=== PATIENT | male | born 1995 | race Two or more races ===

== ENCOUNTER 2024-10-10 23:55 | Inpatient (IN) | payer MEDICAID, OTHER ==
[~2024-10-10] VITALS: Ht 182.9 cm; Wt 101.2 kg
[2024-10-11] MEDS: SODIUM CHLORIDE 0.9% 1,000 ML IV ONE ×2 (00:53→03:22)
[2024-10-11] MEDS: LORazepam 2MG/ML-1ML VIAL IV ONE ×2 (00:53→01:09)
--- NOTE | 2024-10-11 00:54 | ED.PDOC ---
HPI (NEURO) HPI Comments Vitals: Temperature 98.9F Pulse 83 Respiratory rate 13 Blood pressure 123/88 SpO2 97%RA Past medical history: alcohol-withdrawal induced seizures Past surgical history: denies HPI: Poor Historian. 29-year-old male brought in by ambulance from a rehab facility for evaluation of witnessed alcohol withdrawal seizure. Vital signs pre-hospital course and blood sugar were unremarkable. Patient was given no medications in route. Patient arrived postictal and had a witnessed seizure here in the ED. Patient was evaluated immediately. REVIEW OF SYSTEMS: Limited given the patient altered level of consciousness/postictal state CONSTITUTIONAL: Denies acute: fever, diaphoresis, chills, generalized weakness. HEAD: Denies acute: headache, photophobia Eyes: Denies acute: Double vision, vision loss, eye pain, eye discharge. EARS: Denies acute: tinnitus, hearing loss, ear discharge, ear pain, THROAT: Denies acute: sore throat, swelling, difficulty swallowing , pain with swallowing, change in voice. NECK: Denies acute: neck pain, neck swelling, stiff neck. HEART: Denies acute : chest pain, palpitations, LUNGS: Denies acute: SOB, wheezing, cough, hemoptysis ABDOMEN: Denies acute: abdominal pain, Nausea, Vomiting, diarrhea, melena , hematemesis, hematochezia SKIN: Denies acute: rash, redness, lesions, itchiness. EXTREMITIES: Denies acute: calf pain, numbness, tingling, weakness, denies pain in extremity. Denies acute: Low back pain. Neuro: Denies acute: focal neurological deficit, motor or sensory focal neurological deficit, dizziness, loss of bowel or bladder function, cauda equina like symptoms. : Denies acute: dysuria, hematuria, flank pain, increase in urinary frequency. PSYCH: Denies acute: hallucination, suicidal ideation, homicidal ideation. PHYSICAL EXAM: General: -----[id number]---acute distress, awake and alert. Head: normocephalic, atraumatic. Neck: supple, trachea is midline, no swelling. Throat: Normal phonation. Eyes:, no erythema, no purulent discharge, no proptosis, no icterus. Heart: regular rate, regular rhythm, no significant murmur appreciated. Lungs: no apparent respiratory distress, Able to speak in full sentences. No wheezing, no rhonchi, no crackles. No stridors Clear to auscultation bilaterally. Abdomen: non tender to palpation, non distended, soft, no guarding, no rebound, + bowel sounds. Neuro: Patient was initially postictal from the field. Patient had witnessed seizure here in the ED. Seizure was controlled with the Ativan and Versed. Patient was placed on a non-rebreather mask immediately and given fluid hydration as well. Patient started waking up and moving all four extremities and having purposeful movement and holding his mask on his face and making eye contact. Skin: no petechia, no purpura, no cyanosis, non-pale, not jaundice. Lower extremities: --no - Pitting edema no deformity, no focal swelling, no calf TTP. Makes eye contact. moves all four extremities. Face: no apparent facial droop. No nuchal rigidity, Kernig's sign, Brudzinski's sign, no meningeal signs. ED COURSE: DISCLAIMER: This medical document was created using an electronic medical record system with voice recognition software and computerized dictation system. Although this document has been carefully reviewed, there might still be some phonetic and typographical errors. Occasional wrong-word or "sound-alike" substitutions may have occurred due to the inherent limitations of voice recognition software. These areas are purely typographical due to imperfections of the software programs and do not reflect any compromise in the patient's medical care. Please read the chart carefully and recognize, using context, where these substitutions have occurred. Chief Complaint: Seizure Time Seen by MD: 00:50 Reviewed Notes: Allergies Information Source: Emergency Med Personnel Mode of Arrival: EMS Was a procedure done? Was a procedure done?: No Differential Diagnosis (SZ) Seizure: Other (SEIZUREDDX include not limited to CVA, cerebellar ischemia/infarct, carotid stenosis, vertebral/carotid artery dissection,, vertebrobasillary insufficiency, Intracranial mass/infection/bleed, encephalopathy, elctrolyte abnormality, thyroid disease, multiple sclerosis, hypoglycemia, drug toxicity, cardiac arrhythmia, sub-theraputic anti-convulsion medications, known seizure disorder, pseudo-seizure.) X-Ray, Labs, Meds, VS Vital Signs Date Time Temp Pulse Resp B/P (MAP) Pulse Ox O2 Delivery O2 Flow Rate FiO2 10/11/24 03:00 87 18 104/62 (76) 100 10/11/24 01:30 98.2 88 16 123/77 (92) 100 98.2 10/11/24 01:30 88 16 99 Non-Rebreather 15 N/A 10/11/24 01:00 97 24 121/78 (92) 98 10/11/24 00:55 95 10 124/71 (88) 98 10/11/24 00:52 98 10/11/24 00:33 81 10/11/24 00:20 98.9 83 13 123/88 97 98.9 Lab Test 10/11/24 02:11 10/11/24 01:13 10/11/24 01:00 Range/Units Troponin I High Sensitivity < 3 L < 3 L </=54 ng/L White Blood Count 5.2 4.4-10.8 10^3/uL Red Blood Count 4.36 L 4.5-5.90 10^6/uL Hemoglobin 14.4 13.5-17.5 g/dL Hematocrit 41.3 41.0-53.0 % Mean Corpuscular Volume 94.8 80.0-100.0 fL Mean Corpuscular Hemoglobin 33.1 H 28.0-32.0 pg Mean Corpuscular Hemoglobin Concent 34.9 32.0-36.0 g/dL Red Cell Distribution Width 13.2 11.8-14.3 % Platelet Count 279 140-450 10^3/uL Mean Platelet Volume 8.9 6.9-10.8 fL Neutrophils (%) (Auto) 42.4 37.0-80.0 % Lymphocytes (%) (Auto) 42.9 10.0-50.0 % Monocytes (%) (Auto) 9.6 0.0-12.0 % Eosinophils (%) (Auto) 3.3 0.0-7.0 % Basophils (%) (Auto) 1.8 0.0-2.0 % Neutrophils # (Auto) 2.2 1.6-8.6 10 ^3/uL Lymphocytes # (Auto) 2.2 0.4-5.4 10 ^3/uL Monocytes # (Auto) 0.5 0-1.3 10 ^3/uL Eosinophils # (Auto) 0.2 0-0.8 10 ^3/uL Basophils # (Auto) 0.1 0-0.2 10 ^3/uL Nucleated Red Blood Cells 0.0 % Sodium Level 146 H 136-145 mmol/L Potassium Level 3.8 3.5-5.1 mmol/L Chloride Level 109 H 98-107 mmol/L Carbon Dioxide Level 25 20-31 mmol/L Anion Gap 12 5-15 Blood Urea Nitrogen < 5 L 9-23 mg/dL Creatinine 0.85 0.700-1.30 mg/dL Glomerular Filtration Rate Calc 121 >90 mL/min BUN/Creatinine Ratio 5.9 L 10.0-20.0 Serum Glucose 97 74-106 mg/dL Lactic Acid Level 2.3 *H 0.4-2.0 mmol/L Calcium Level 8.2 L 8.7-10.4 mg/dL Magnesium Level 2.0 1.6-2.6 mg/dL Total Bilirubin 0.3 0.2-1.0 mg/dL Aspartate Amino Transferase (AST) 54 H 13-40 U/L Alanine Aminotransferase (ALT) 37 7-40 U/L Alkaline Phosphatase 66 46-116 U/L Creatine Kinase 504 H 46-171 U/L Total Protein 6.8 5.7-8.2 g/dL Albumin 4.2 3.2-4.8 g/dL Plasma/Serum Blood Alcohol 322.7 H <10 mg/dL Urine Color Colorless Yellow Urine Clarity Clear Clear Urine pH 5.5 5.0-9.0 Urine Specific [place] 1.004 1.001-1.035 Urine Protein Negative Negative Urine Ketones Negative Negative Urine Blood Negative Negative /uL Urine Nitrite Negative Negative Urine Bilirubin Negative Negative Urine Urobilinogen Normal Negative mg/dL Urine Leukocyte Esterase Negative Negative /uL Urine RBC None seen 0 - 3 /hpf Urine Microscopic WBC < 1 0-3 /HPF Urine Squamous Epithelial Cells None seen <5 /hpf Urine Bacteria None seen None Seen /hpf Urine Glucose Normal Normal mg/dL Urine Opiates Screen Neg NEGATIVE Urine Fentanyl Screen Neg NEGATIVE Urine Barbiturates Screen Neg NEGATIVE Urine Phencyclidine Screen Neg NEGATIVE Urine Amphetamines Screen Neg NEGATIVE Urine Benzodiazepines Screen Neg NEGATIVE Urine Cocaine Screen Neg NEGATIVE Urine Cannabinoids Screen Neg NEGATIVE [facility] [address] [facility] [address] Ph: [phone] DIAGNOSTIC IMAGING Diagnostic Imaging Report : [id number] Signed PATIENT: BRIAN COLEMAN ACCT: [id number] UNIT: [id number] : 1995 LOC: ER ROOM / BED: / AGE / SEX: 29 / M ADM STATUS: REG ER SERVICE [id number] ORDERING PHYSICIAN: KOBE ISAAC DO PROCEDURE(s): HWOCT - HEAD WITHOUT CONTRAST REASON: Alcohol withdrawal seizure ORDER NUMBER(s): [id number], ACCESSION NUMBER(s): [id number] EXAM: CT HEAD WITHOUT CONTRAST INDICATION: Alcohol withdrawal seizure TECHNIQUE: CT of the head without intravenous contrast. Radiation Dose : 1. Head: CT Dose: CTDI volume is 62.13 mGy. Dose-length product is 1.71 mGy*cm The dose indicators for CT are the volume Computed Tomography (CT) Dose Index (CTDIvol) and the Dose Length Product (DLP), and are measured in units of mGy and mGy-cm, respectively. These indicators are not patient dose, but values generated from the CT scanner acquisition factors. The report includes radiation exposure data for exposures received during this examination. COMPARISON: None FINDINGS: Brain: No acute hemorrhage, mass effect, or cerebral edema. CSF Spaces: Size and morphology within normal limits. Bones/Soft Tissues: No acute findings. Orbits/Sinuses/Mastoids: No acute findings. Partially imaged left maxillary sinus retention cysts. IMPRESSION: 1. No acute intracranial abnormality. Radiation optimization: All CT scans at this facility use at least one of these dose optimization techniques: automated exposure control mA and/or kV adjustment per patient size (includes targeted exams where dose is matched to clinical indication) or iterative reconstruction. ATED BY: RASHI CARRANZA MD DICTATED DATE/TIME: 10/11/24208 SIGNED BY: RASHI CARRANZA MD SIGNED DATE/TIME: 10/11/24208 CC: [address] [address] Ph: [phone] DIAGNOSTIC IMAGING Diagnostic Imaging Report : [id number] Signed PATIENT: BRIAN COLEMAN ACCT: [id number] UNIT: [id number] : 1995 LOC: ER ROOM / BED: / AGE / SEX: 29 / M ADM STATUS: REG ER SERVICE ORDERING PHYSICIAN: KOBE ISAAC DO PROCEDURE(s): CXRP - CHEST PORTABLE REASON: Seizure ORDER NUMBER(s): [id number], ACCESSION NUMBER(s): [id number] CHEST RADIOGRAPH Indication: Seizure Technique: 1 view Comparison: None FINDINGS: Lines and Tubes: None Lungs/Pleura: No focal consolidation. Low lung volumes with vascular crowding and bibasilar airspace opacities likely representing atelectasis. No evident pleural abnormality; costophrenic angle is excluded. Cardiomediastinum: Unremarkable. Other: No acute osseous abnormality. IMPRESSION: 1. Low lung volumes with bibasilar opacities likely representing atelectasis. ATED BY: RASHI CARRANZA MD DICTATED DATE/TIME: 10/11/24132 SIGNED BY: RASHI CARRANZA MD SIGNED DATE/TIME: 10/11/24132 CC: Time of 1ST Reevaluation: 01:20 Reevaluation 1ST: Unchanged Patient Education/Counseling: Other (patient is postictal ) Family Education/Counseling: No Family Present Comments MDM: patient presented with the above HPI.-alcohol withdrawal seizure-----workup was initiated. patient was found with the above mentioned diagnosis. the following medications were ordered: please refer to order lists of meds and tests obtained by myself Dr. Isaac. Patient ED course and VS have been stabilized. Patient has been reassessed in the ED and remained in a stable condition. Pertinent incidental findings were discussed with the patient and/or family. Patient has been observed in the ED adequate length of time to insure improvement/stability. Escalation of care considered: Consideration of escalation to observation or admission Patient was given Versed, Ativan, fluids. Patient was ADMITTED to the medicine team for further evaluation and treatment of their presentation. All the reports of any imaging studies that were ordered by myself were reviewed by myself. Departure 1 Departure Time of Disposition: 01:33 Impression: Primary Impression: Alcohol withdrawal seizure Disposition: ADMITTED INPATIENT Admit to: Tele Condition: Guarded e-Prescriptions Pantoprazole Sodium Sesquihydr (Pantoprazole Sodium) 40 Mg Tab 40 MG PO DAILY for 30 Days, #30 TAB Prov: RAD HOLLIS RESIDENT 10/13/24 Thiamine HCl (Thiamine Hydrochloride) 100 Mg Tab 100 MG PO DAILY for 90 Days, #90 TAB Prov: RAD HOLLIS RESIDENT 10/13/24 Folic Acid (Folic Acid) 1 Mg Tab 1 MG PO DAILY for 90 Days, #90 TAB Prov: RAD HOLLIS RESIDENT 10/13/24 Discharged With: Self Critical Care Note Critical Care Time?: Yes (55 min-critical care time only) I personally scribed for KOBE ISAAC DO ([email or web address]) on 10/11/24 at 00:54. Electronically submitted by Sergio Brown [email or web address]). KOBE ISAAC DO Oct 11, 2024 00:54
[2024-10-11] MEDS: MIDAZOLAM HCL 2MG/2ML 2ml VIAL (1mg/ml) ONE (00:56)
[2024-10-11] MEDS: LORazepam 2MG/ML-1ML VIAL ONE (00:57)
[2024-10-11] MEDS: MIDAZOLAM HCL 2MG/2ML 2ml VIAL (1mg/ml) IV ONE (01:02)
[2024-10-11 01:30] VITALS: PULSE 88; RESP 16; O2SAT 99
--- NOTE | 2024-10-11 01:36 | DVH ---
CHEST RADIOGRAPH Indication: Seizure Technique: 1 view Comparison: None FINDINGS: Lines and Tubes: None Lungs/Pleura: No focal consolidation. Low lung volumes with vascular crowding and bibasilar airspace opacities likely representing atelectasis. No evident pleural abnormality; costophrenic angle is ex cluded. Cardiomediastinum: Unremarkable. Other: No acute osseous abnormality. IMPRESSION: 1. Low lung volumes with bibasilar opacities likely representing atelectasis.
[2024-10-11 01:43] LABS: Hematocrit 41.3 % (41.0-53.0); Hemoglobin 14.4 g/dL (13.5-17.5); Mean Corpuscular Hemoglobin 33.1 pg (28.0-32.0); Mean Corpuscular Volume 94.8 fL (80.0-100.0); Nucleated Red Blood Cells % 0.0 %
[2024-10-11 02:00] LABS: Alanine Aminotransferase 37 U/L (7-40); Albumin 4.2 g/dL (3.2-4.8); Alkaline Phosphatase 66 U/L (46-116); Anion Gap 12 (5-15); Carbon Dioxide 25 mmol/L (20-31); Chloride 109 mmol/L (98-107); Glucose 97 mg/dL (74-106); Magnesium 2.0 mg/dL (1.6-2.6); Potassium 3.8 mmol/L (3.5-5.1); Sodium 146 mmol/L (136-145); Total Protein 6.8 g/dL (5.7-8.2)
[2024-10-11 02:01] LABS: BUN/Creatinine Ratio 5.9 (10.0-20.0); Blood Urea Nitrogen < 5 mg/dL (9-23); Calcium 8.2 mg/dL (8.7-10.4)
[2024-10-11 02:08] LABS: Bilirubin, Total 0.3 mg/dL (0.2-1.0)
--- NOTE | 2024-10-11 02:12 | DVH ---
EXAM: CT HEAD WITHOUT CONTRAST INDICATION: Alcohol withdrawal seizure TECHNIQUE: CT of the head without intravenous contrast. Radiation Dose : 1. Head: CT Dose: CTDI volume is 62.13 mGy. Dose-length product is 1.71 mGy*cm The dose indicators for CT are the volume Computed Tomography (CT) Dose Index (CTDIvol) and the Dose Length Product (DLP), and are measured in units of mGy and mGy-cm, respectively. These indicators are not patient dose, but values generated from the CT scanner acquisition factors. The report includes radiation exposure data for exposures received during this examination. COMPARISON: None FINDINGS: Brain: No acute hemorrhage, mass effect, or cerebral edema. CSF Spaces: Size and morphology within normal limits. Bones/Soft Tissues: No acute findings. Orbits/Sinuses/Mastoids: No acute findings. Partially imaged left maxillary sinus retention cysts. IMPRESSION: 1. No acute intracranial abnormality. Radiation optimization: All CT scans at this facility use at least one of these dose optimization jluis hniques: automated exposure control mA and/or kV adjustment per patient size (includes targeted exam s where dose is matched to clinical indication) or iterative reconstruction.
[2024-10-11 02:13] LABS: Lactic Acid w/Reflex 2.3 mmol/L (0.4-2.0)
--- NOTE | 2024-10-11 03:08 | DVHHP2 ---
History of Present Illness Reason for Visit: Alcohol withdrawal seizure History of Present Illness The patient is a 29-year-old male with past medical history of alcohol withdrawal induced seizure who presented to [facility] ED for evaluation of witnessed alcohol withdrawal seizure. As reported patient had a witnessed alcohol withdrawal seizure, arrived postictal and had a witnessed seizure here in the ED. Patient was noted to have bruises on his forehead and left knee. Patient was seen and evaluated in the ED, laboratory data shows WBC 5.2, platelets 279, sodium 146, potassium 3.8, BUN 5, creatinine 0.85, glucose 97, lactic acid 2.3, CK 504, troponin < 3, calcium 8.2, AST 54, ALT 37, blood pressure 122/77, heart rate 88, temperature 98.2 F, O2 saturation 98% on oxygen. Head CT showed no acute intracranial abnormality. Please see medication orders section in the computer. On my assessment, patient denied chest pain, no headache, no dizziness, no diaphoresis, no seizures activities at this moment, currently on oxygen, no nausea, no vomiting, no fever, no chills. Patient was admitted for further evaluation and medical management. Past Medical History Alcohol-withdrawal induced seizures Past Surgical History Denies all surgeries Family History Reviewed, noncontributory to the management of this case. Past Social History The patient lives at home, denies smoking, alcohol or illicit drugs abuse. Review of Systems Constitutional: Yes: Weakness; No: Fever, Chills, Sweats, Malaise, Other Eyes: No: Pain, Vision change, Conjunctivae inflammation, Eyelid inflammation, Other, Redness ENT: No: Ear pain, Ear discharge, Nose pain, Nose discharge, Nose congestion, Mouth pain, Mouth swelling, Throat pain, Throat swelling, Other Respiratory: No: Cough, Dry, Shortness of breath, SOB with excertion, Wheezing, Hemoptysis, Pleuritic Pain, Sputum, Wheezing, Other Cardiovascular: No: Chest Pain, Palpitations, Orthopnea, Paroxysmal Noc. Dyspnea, Edema, Lt Headedness, Other Gastrointestinal: No: Nausea, Vomiting, Abdominal Pain, Diarrhea, Constipation, Melena, Hematochezia, Other Genitourinary: No Dysuria, No Frequency, No Incontinence, No Hematuria, No Retention, No Other Musculoskeletal: No: other, neck pain, shoulder pain, arm pain, back pain, hand pain, leg pain, foot pain Skin: Other (Skin tear right forehead and left knee.); No: Rash, Lesions, Jaundice, Bruising Neurological: Seizures; No: Weakness, Numbness, Incoordination, Change in speech, Confusion, Other Allergies: Coded Allergies: NO KNOWN ALLERGIES (Unverified , 10/11/24) Exam Vital Signs Vital Signs Date Time Temp Pulse Resp B/P (MAP) Pulse Ox O2 Delivery O2 Flow Rate FiO2 10/11/24 01:30 98.2 88 16 123/77 (92) 100 98.2 10/11/24 01:30 Non-Rebreather 15 N/A General Appearance: Alert, Cooperative, No acute distress, Other (Oriented x2) HEENT: Atraumatic, PERRLA, EOMI, Mucous membr. moist/pink Respiratory: Clear to auscultation, Normal air movement Cardiovascular: Regular rate, Normal S1, Normal S2, No murmurs Abdominal: Normal bowel sounds, Soft, No tenderness, No hepatospenomegaly, No masses Extremities: No clubbing, No cyanosis, No edema, Normal pulses, No tenderness/swelling Skin: No rashes, No significant lesion Neuro: Normal speech, Normal tone, Sensation intact, Cranial nerves 3-12 NL, Reflexes 2+, Other (Generalized weakness) Psych/Mental Status: Mental status NL, Mood NL Labs/Xrays Labs Test 10/11/24 02:11 10/11/24 01:13 10/11/24 01:00 Range/Units Troponin I High Sensitivity < 3 L </=54 ng/L White Blood Count 5.2 4.4-10.8 10^3/uL Red Blood Count 4.36 L 4.5-5.90 10^6/uL Hemoglobin 14.4 13.5-17.5 g/dL Hematocrit 41.3 41.0-53.0 % Mean Corpuscular Volume 94.8 80.0-100.0 fL Mean Corpuscular Hemoglobin 33.1 H 28.0-32.0 pg Mean Corpuscular Hemoglobin Concent 34.9 32.0-36.0 g/dL Red Cell Distribution Width 13.2 11.8-14.3 % Platelet Count 279 140-450 10^3/uL Mean Platelet Volume 8.9 6.9-10.8 fL Neutrophils (%) (Auto) 42.4 37.0-80.0 % Lymphocytes (%) (Auto) 42.9 10.0-50.0 % Monocytes (%) (Auto) 9.6 0.0-12.0 % Eosinophils (%) (Auto) 3.3 0.0-7.0 % Basophils (%) (Auto) 1.8 0.0-2.0 % Neutrophils # (Auto) 2.2 1.6-8.6 10 ^3/uL Lymphocytes # (Auto) 2.2 0.4-5.4 10 ^3/uL Monocytes # (Auto) 0.5 0-1.3 10 ^3/uL Eosinophils # (Auto) 0.2 0-0.8 10 ^3/uL Basophils # (Auto) 0.1 0-0.2 10 ^3/uL Nucleated Red Blood Cells 0.0 % Sodium Level 146 H 136-145 mmol/L Potassium Level 3.8 3.5-5.1 mmol/L Chloride Level 109 H 98-107 mmol/L Carbon Dioxide Level 25 20-31 mmol/L Anion Gap 12 5-15 Blood Urea Nitrogen < 5 L 9-23 mg/dL Creatinine 0.85 0.700-1.30 mg/dL Glomerular Filtration Rate Calc 121 >90 mL/min BUN/Creatinine Ratio 5.9 L 10.0-20.0 Serum Glucose 97 74-106 mg/dL Lactic Acid Level 2.3 *H 0.4-2.0 mmol/L Calcium Level 8.2 L 8.7-10.4 mg/dL Magnesium Level 2.0 1.6-2.6 mg/dL Total Bilirubin 0.3 0.2-1.0 mg/dL Aspartate Amino Transferase (AST) 54 H 13-40 U/L Alanine Aminotransferase (ALT) 37 7-40 U/L Alkaline Phosphatase 66 46-116 U/L Creatine Kinase 504 H 46-171 U/L Total Protein 6.8 5.7-8.2 g/dL Albumin 4.2 3.2-4.8 g/dL PATIENT: BRIAN COLEMAN ACCT: [id number] UNIT: [id number] : 1995 LOC: ER ROOM / BED: / AGE / SEX: 29 / M ADM STATUS: REG ER SERVICE 0143 ORDERING PHYSICIAN: KOBE ISAAC DO PROCEDURE(s): HWOCT - HEAD WITHOUT CONTRAST REASON: Alcohol withdrawal seizure ORDER NUMBER(s): [id number], ACCESSION NUMBER(s): [id number] EXAM: CT HEAD WITHOUT CONTRAST INDICATION: Alcohol withdrawal seizure TECHNIQUE: CT of the head without intravenous contrast. Radiation Dose: 1. Head: CT Dose: CTDI volume is 62.13 mGy. Dose-length product is 1.71 mGy*cm The dose indicators for CT are the volume Computed Tomography (CT) Dose Index (CTDIvol) and the Dose Length Product (DLP), and are measured in units of mGy an d mGy-cm, respectively. These indicators are not patient dose, but values generated from the CT scanner acquisition factors. The report includes radiation exposure data for exposures received during this examination. COMPARISON: None FINDINGS: Brain: No acute hemorrhage, mass effect, or cerebral edema. CSF Spaces: Size and morphology within normal limits. Bones/Soft Tissues: No acute findings. Orbits/Sinuses/Mastoids: No acute findings. Partially imaged left maxillary sinus retention cysts. IMPRESSION: 1. No acute intracranial abnormality. ORDERING PHYSICIAN: KOBE ISAAC DO PROCEDURE(s): CXRP - CHEST PORTABLE REASON: Seizure ORDER NUMBER(s): [id number], ACCESSION NUMBER(s): [id number] CHEST RADIOGRAPH Indication: Seizure Technique: 1 view Comparison: None FINDINGS: Lines and Tubes: None Lungs/Pleura: No focal consolidation. Low lung volumes with vascular crowding and bibasilar airspace opacities likely representing atelectasis. No evident pleural abnormality; costophrenic angle is excluded. Cardiomediastinum: Unremarkable. Other: No acute osseous abnormality. IMPRESSION: 1. Low lung volumes with bibasilar opacities likely representing atelectasis. SEPSIS Sepsis Screen Date sepsis recognized/suspect: Oct 11, 2024 Time Sepsis recognized/suspect: 0130 Recent Procedure: No On Antibiotic Therapy: No Respiratory Rate >20: No Heart Rate >90: No Temp<36 C (96.8 F) or >38.3 C: No SBP <90 or MAP <65 mmHG: No New Acute Mental Status Change: No Is the patient on CPAP, BIPAP,: No Physician Orders [employer] (10/11/24 ) Blood Alcohol (10/11/24 00:40) Comprehensive Metabolic Panel (10/11/24 00:40) Magnesium (10/11/24 00:40) Urinalysis (10/11/24 00:40) Chest Portable (10/11/24 00:40) Electrocardigram (10/11/24 00:40) Troponin-I Hs (10/11/24 03:40) Head Without Contrast (10/11/24 01:43) Sodium Chloride 0.9% (10/11/24 03:00) Complete Blood Count (10/11/24 04:00) Comprehensive Metabolic Panel (10/11/24 04:00) Lorazepam 2mg/Ml Inj (Ativan Inj) (10/11/24 03:15) Folic Acid Tablet (10/11/24 10:00) Thiamine Tab (10/11/24 10:00) Trazodone Hcl (Desyrel) (10/11/24 22:00) Gabapentin Capsule (Neurontin Capsule) (10/11/24 06:00) Admit (10/11/24 03:03) Allergies (10/11/24 03:03) Code Status (10/11/24 03:03) Sodium Chloride Lock (Saline Lock Ns) (10/11/24 06:00) Vital Signs Date Time Temp Pulse Resp B/P (MAP) Pulse Ox O2 Delivery O2 Flow Rate FiO2 10/11/24 01:30 98.2 88 16 123/77 (92) 100 98.2 10/11/24 01:30 88 16 99 Non-Rebreather 15 N/A 10/11/24 01:00 97 24 121/78 (92) 98 10/11/24 00:55 95 10 124/71 (88) 98 10/11/24 00:33 81 10/11/24 00:20 98.9 83 13 123/88 97 98.9 Laboratory Tests Test 10/11/24 01:13 Lactic Acid Level 2.3 mmol/L (0.4-2.0) *H White Blood Count 5.2 10^3/uL (4.4-10.8) Medications Medications Dose Ordered Sig/Tank Route Start Time Stop Time Status Last Admin Dose Admin Chlordiazepoxide HCl 25 mg ONCE ONCE PO 10/11/24 00:45 10/11/24 00:46 DC 10/11/24 02:35 25 MG Lorazepam 1 mg ONCE ONCE IV 10/11/24 00:45 10/11/24 00:46 DC 10/11/24 00:53 1 MG Lorazepam 2 mg ONCE ONCE IV 10/11/24 01:08 10/11/24 01:27 DC 10/11/24 01:09 2 MG Midazolam HCl 2 mg ONCE ONCE IV 10/11/24 01:01 10/11/24 01:27 DC 10/11/24 01:02 2 MG Sodium Chloride 1,000 ml @ 1,000 mls/hr Q1H ONCE IV 10/11/24 00:45 10/11/24 01:44 DC 10/11/24 00:53 1,000 MLS/HR Assessment/Plan Assessment/Plan Alcohol withdrawal seizure Rhabdomyolysis Generalized weakness Plan 1. Admit to telemetry unit 2. Breathing treatment 3. Pain control management 4. Management of fluids and electrolytes 5. Consultation for Neurology 6. Diagnostic tests head CT 7. DVT prophylaxis-on SCDs 8. Repeat labs CBC, CMP in a.m. 9. Continue with current medical management 10. Treatment plan discussed with patient and RN. Patient verbalized understanding. Plan discussed with: Patient, Other (RN) My Orders Orders - VANNESA JUARES DNP Procedure Category Date Status Time Complete Blood Count LAB 10/11/24 Verified 04:00 Comprehensive LAB 10/11/24 Verified Metabolic Panel 04:00 Lorazepam 2mg/Ml Inj PHA 10/11/24 Verified (Ativan Inj) 03:15 Folic Acid Tablet PHA 10/11/24 Verified 10:00 Thiamine Tab PHA 10/11/24 Verified 10:00 Trazodone Hcl PHA 10/11/24 Verified (Desyrel) 22:00 Gabapentin Capsule PHA 10/11/24 Verified (Neurontin Capsule) 06:00 Admit ADMIT 10/11/24 Verified 03:03 Allergies THOMAS 10/11/24 Verified 03:03 Code Status CODE 10/11/24 Verified 03:03 Sodium Chloride Lock PHA 10/11/24 Verified (Saline Lock Ns) 06:00 Problem List: (1) Alcohol withdrawal seizure (2) Rhabdomyolysis (3) Generalized weakness Date of Service: Oct 11, 2024 Billing Provider: VANNESA JUARES DNP Common Visit Codes: [id number] INP/OBS CARE (HIGH) VANNESA JUARES DNP Oct 11, 2024 03:08
[2024-10-11 03:15] LABS: Urine Protein, UAD Negative (Negative)
[2024-10-11] MEDS ORDERED: NITROGLYCERIN 0.4 MG SL TAB SL PRN (03:15)
[2024-10-11] MEDS ORDERED: HYDROcodone-ACET 5/325MG TAB PO PRN (03:15)
[2024-10-11] MEDS ORDERED: DOCUSATE SOD 100 MG CAP PO PRN (03:15)
[2024-10-11] MEDS ORDERED: MORPHINE SULFATE INJ 2 MG/ml SYRG IV PRN (03:15)
[2024-10-11] MEDS: CALCIUM GLUC 1,000mg/50ml-NS 50 ML IV ONE (04:21)
[2024-10-11] MEDS: LACTATED RINGER'S 1,000 ML IV SCH (04:24)
[2024-10-11 04:38] LABS: Hematocrit 39.6 % (41.0-53.0); Hemoglobin 13.7 g/dL (13.5-17.5); Mean Corpuscular Hemoglobin 32.7 pg (28.0-32.0); Mean Corpuscular Volume 94.5 fL (80.0-100.0); Nucleated Red Blood Cells % 0.0 %
[2024-10-11 04:57] LABS: Alanine Aminotransferase 36 U/L (7-40); Albumin 3.8 g/dL (3.2-4.8); Alkaline Phosphatase 63 U/L (46-116); Anion Gap 11 (5-15); Carbon Dioxide 26 mmol/L (20-31); Glucose 93 mg/dL (74-106); Potassium 4.0 mmol/L (3.5-5.1); Total Protein 6.5 g/dL (5.7-8.2)
[2024-10-11 04:58] LABS: Bilirubin, Total 0.3 mg/dL (0.2-1.0)
[2024-10-11 05:21] LABS: BUN/Creatinine Ratio 6.0 (10.0-20.0); Blood Urea Nitrogen < 5 mg/dL (9-23); Calcium 8.0 mg/dL (8.7-10.4); Chloride 109 mmol/L (98-107); Sodium 146 mmol/L (136-145)
--- NOTE | 2024-10-11 06:28 | ECG ---
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
[2024-10-11] MEDS: SODIUM CHLOR 0.9% PF (SALINE LOCK) 10ML VIAL/SYR IV SCH (06:29)
[2024-10-11] MEDS: GABAPENTIN 300 MG CAP PO SCH (06:33)
[2024-10-11 07:30] VITALS: PULSE 66; RESP 15; O2SAT 100
[2024-10-11] MEDS: THIAMINE HCL 100 MG TAB PO SCH (10:14)
[2024-10-11] MEDS: MULTIPLE VITAMIN TAB PO SCH (10:14)
[2024-10-11] MEDS: FOLIC ACID 1 MG TAB PO SCH (10:14)
[2024-10-11] MEDS: LORazepam 2MG/ML-1ML VIAL IV PRN (12:00)
--- NOTE | 2024-10-11 16:30 | DVHPNRES ---
Progress Note Date Seen: Oct 11, 2024 Resident Creating Document: RAD HOLLIS RESIDENT Medical Necessity Reason Pt with a Central, PICC or Fol: No Subjective Review of Systems Patient is 29 years old male with a past medical history of depression, insomnia, OCD, history of alcohol withdrawal was brought in by EMS due to witnessed alcohol withdrawal seizure. Patient also had a witnessed seizure at the ER after he came in. Patient reported he had same episode 3 days before. As per patient he had couple of alcohol withdrawal seizure over the last couple of years. Initial lab workup revealed hyponatremia sodium 146, lactic acidosis with lactic acid 2.3, creatinine kinase 504, AST 54, blood alcohol level 322. Urinalysis negative for UTI. CTA negative for acute intracranial abnormality. Chest x-ray-Low lung volumes with bibasilar opacities likely representing atelectasis. PMH- depression, insomnia, OCD, history of alcohol withdrawal PSH- history of esophageal myotomy 2017, Allergy- NKDA Personal History/ Social History- Patient was seen today at the bedside. Cardiovascular- deny acute chest pain or shortness of breath or cough or palpitation Respiratory denies cough or short of breath or wheezing Gastrointestinal- denies any rectal bleeding, nausea or vomiting Musculoskeletal-denies acute joint swelling or tenderness or redness Neurological- denies acute dysarthria, dysphagia, change in vision Psychiatry- denies depression or SI or HI Skin- denies acute rash or purpura 10/11/2024-patient was seen today at bedside. Patient reported feeling a little bit anxious, mild headache, mild hand tremor. CIWA score 9. Started Librium as per protocol. Patient was counseled about the effect of alcoholism on health. Objective vital signs Vital Sign Date Time Temp Pulse Resp B/P (MAP) Pulse Ox O2 Delivery O2 Flow Rate FiO2 10/11/24 15:00 69 15 126/62 (83) 96 10/11/24 07:30 Room Air* 2 N/A Nasal Cannula* 10/11/24 07:30 97.9 97.9 Total Intake and Output 10/10/24 10/10/24 10/11/24 15:00 23:00 07:00 Intake Total 1200 ml Balance 1200 ml medications Current Medications Medications Dose Ordered Sig/Tank Route Start Time Stop Time Status Last Admin Dose Admin Lorazepam 1 mg Q2HP PRN IV 10/11/24 03:15 10/11/24 14:28 1 MG Folic Acid 1 mg DAILY PO 10/11/24 10:00 Hold 10/11/24 10:14 1 MG Thiamine HCl 100 mg DAILY PO 10/11/24 10:00 Hold 10/11/24 10:14 100 MG Trazodone HCl 50 mg HS PO 10/11/24 22:00 Gabapentin 300 mg TID PO 10/11/24 06:00 10/11/24 14:27 300 MG Sodium Chloride 10 ml Q8HR IV 10/11/24 06:00 10/11/24 06:29 10 ML Ondansetron HCl 4 mg Q4HP PRN IV 10/11/24 03:15 Multivitamins 1 tab DAILY PO 10/11/24 10:00 Hold 10/11/24 10:14 1 TAB Acetaminophen 650 mg Q6HP PRN PO 10/11/24 03:15 Lactated Ringer's 1,000 ml @ 75 mls/hr [id number] IV 10/11/24 04:15 10/11/24 04:24 75 MLS/HR Chlordiazepoxide HCl 50 mg Q8H PO 10/11/24 10:45 10/12/24 02:46 10/11/24 10:55 50 MG Chlordiazepoxide HCl 50 mg Q12HR PO 10/12/24 10:00 10/12/24 22:01 Chlordiazepoxide HCl 25 mg Q12HR PO 10/13/24 10:00 10/13/24 22:01 Chlordiazepoxide HCl 25 mg QAM PO 10/14/24 07:00 10/14/24 07:01 Folic Acid 1 mg/ Magnesium Sulfate 8 meq/ Multivitamins 10 ml/Thiamine HCl 100 mg/Sodium Chloride 1,013.2 ml @ 126.247 mls/hr DAILY@1800 INJ 10/11/24 18:00 Examination General examination- awake, alert oriented, bruise on the right forehead, left knee HEENT- PEERLA, no acute nasal discharge Cardiovascular- S1-S2 audible, rate and rhythm regular, no murmur Respiratory- CTAB, no wheeze or rhonchi Gastrointestinal-nontender, bowel sound+. Nondistended Musculoskeletal-no acute joint swelling or tenderness or redness Lower extremity- bruise left knee Neurological- cranial nerves intact, no acute dysarthria or dysphagia Psychiatry- denies depression or SI or HI Skin- no acute rash or purpura laboratory and microbiology Laboratory Tests 10/11/24 03:38 Test 10/11/24 03:38 Range/Units Serum Glucose 93 74-106 mg/dL Problem List/Assessment/Plan Problem List/Assessment/Plan Assessment and plan # Alcohol withdrawal seizure # Alcohol intoxication # toxic encephalopathy/metabolic encephalopathy likely due to alcoholism -CT head negative for acute intracranial abnormality -blood alcohol level 322 -continue lorazepam PRN as prescribed -Librium as prescribed -IV banana bag as prescribed -continue oral folic acid and thiamine as prescribed Patient was counseled about the effect of alcoholism on health # lactic acidosis -continue IV fluid as prescribed # acute rhabdomyolysis -creatinine kinase 504 -continue IV fluid as prescribed #Depression # OCD # insomnia -resumed home medications trazodone, gabapentin Diet-regular diet Goals of care, Code status ; discussed with >15 minutes PUD prophylaxis: Pantoprazole DVT prophylaxis: Not indicated Plan discussed with Dr. Trujillo , nursing staff, Total time spent on patient evaluation, chart review, assessment and plan, discussion discussion >35 minutes Plan discussed with: Patient, Other (RN) My Orders My Orders Orders - RAD HOLLIS RESIDENT Procedure Category Date Status Time Chlordiazepoxide Hcl PHA 10/11/24 In Process Capsule (Librium Ca 10:45 Chlordiazepoxide Hcl PHA 10/12/24 In Process Capsule (Librium Ca 10:00 Chlordiazepoxide Hcl PHA 10/13/24 In Process Capsule (Librium Ca 10:00 Chlordiazepoxide Hcl PHA 10/14/24 In Process Capsule (Librium Ca 07:00 Folic Acid... PHA 10/11/24 In Process 18:00 Date of Service: Oct 11, 2024 Billing Provider: CASEY TRUJILLO MD Common Visit Codes: [id number] INP/OBS CARE(HIGH) Secondary Visit Codes: [id number] CARE PLAN 30 MINUTES RAD HOLLIS Oct 11, 2024 16:29 NADIRA BLANCO Oct 13, 2024 07:02 CASEY TRUJILLO MD Oct 13, 2024 10:51
[2024-10-11] MEDS: PANTOPRAZOLE 40 MG TAB PO ONE (16:56)
[2024-10-11] MEDS: ONDANSETRON HCL 4 MG/2 ML VIAL IV PRN (17:10)
[2024-10-11] MEDS: ACETAMINOPHEN 325 MG TAB PO PRN (17:20)
[2024-10-11] MEDS: FOLIC ACID 1 MG, MAGNESIUM SULF SDV 50% 8 MEQ, MULTIPLE VITAMIN 10 ML, THIAMINE INJ 100... INJ SCH (18:04)
[2024-10-11 21:10] VITALS: BP 127/85; PULSE 81; RESP 18; TEMP 98.2; O2SAT 97
[2024-10-11 21:40] VITALS: BP 127/85; PULSE 81; RESP 18; TEMP 98.2; O2SAT 97
[2024-10-11] MEDS ORDERED: GABA-1251 PO (21:43)
[2024-10-11] MEDS ORDERED: FLUV25TA PO (21:43)
[2024-10-11] MEDS ORDERED: TRAZ-227 PO (21:43)
[2024-10-11] MEDS ORDERED: THIA100T10 PO (21:43)
[2024-10-11] MEDS ORDERED: FOLI-119 PO (21:43)
[2024-10-11] MEDS ORDERED: THIA100T13 PO (21:43)
[2024-10-11 21:52] LABS: Amphetamine Screen, Urine Neg (NEGATIVE); Barbiturate Scree,Urine Neg (NEGATIVE); Benzodiazephine Screen, Urine Neg (NEGATIVE); Cannabinoid Screen, Urine Neg (NEGATIVE); Cocaine Screen, Urine Neg (NEGATIVE); Opiate Scree,Urine Neg (NEGATIVE); Phencyclidine Screen, Urine Neg (NEGATIVE)
[2024-10-12] VITALS (7 sets, daily range): BP systolic 115–126; BP diastolic 56–86; PULSE 57–75; RESP 16–20; TEMP 97.3–98.9; O2SAT 96–99
[2024-10-12] MEDS: PANTOPRAZOLE 40 MG TAB PO SCH (05:15)
[2024-10-12 06:41] LABS: Hematocrit 41.8 % (41.0-53.0); Hemoglobin 14.7 g/dL (13.5-17.5); Mean Corpuscular Hemoglobin 33.2 pg (28.0-32.0); Mean Corpuscular Volume 94.2 fL (80.0-100.0); Nucleated Red Blood Cells % 0.2 %
[2024-10-12 06:57] LABS: Alanine Aminotransferase 32 U/L (7-40); Alkaline Phosphatase 63 U/L (46-116); Anion Gap 7 (5-15); BUN/Creatinine Ratio 6.8 (10.0-20.0); Calcium 9.2 mg/dL (8.7-10.4); Carbon Dioxide 29 mmol/L (20-31); Chloride 103 mmol/L (98-107); Glucose 94 mg/dL (74-106); Magnesium 2.0 mg/dL (1.6-2.6); Potassium 4.0 mmol/L (3.5-5.1); Sodium 139 mmol/L (136-145); Total Protein 6.0 g/dL (5.7-8.2)
[2024-10-12 06:58] LABS: Albumin 3.8 g/dL (3.2-4.8); Bilirubin, Total 0.9 mg/dL (0.2-1.0)
[2024-10-12 07:00] LABS: Blood Urea Nitrogen 6 mg/dL (9-23)
--- NOTE | 2024-10-12 09:22 | DVHPNRES ---
Progress Note Date Seen: Oct 12, 2024 Resident Creating Document: RAD HOLLIS RESIDENT Medical Necessity Reason Pt with a Central, PICC or Fol: No Subjective Review of Systems Patient is 29 years old male with a past medical history of depression, insomnia, OCD, history of alcohol withdrawal was brought in by EMS due to witnessed alcohol withdrawal seizure. Patient also had a witnessed seizure at the ER after he came in. Patient reported he had same episode 3 days before. As per patient he had couple of alcohol withdrawal seizure over the last couple of years. Initial lab workup revealed hyponatremia sodium 146, lactic acidosis with lactic acid 2.3, creatinine kinase 504, AST 54, blood alcohol level 322. Urinalysis negative for UTI. CTA negative for acute intracranial abnormality. Chest x-ray-Low lung volumes with bibasilar opacities likely representing atelectasis. PMH- depression, insomnia, OCD, history of alcohol withdrawal PSH- history of esophageal myotomy 2017, Allergy- NKDA Personal History/ Social History- Patient was seen today at the bedside. Cardiovascular- deny acute chest pain or shortness of breath or cough or palpitation Respiratory denies cough or short of breath or wheezing Gastrointestinal- denies any rectal bleeding, nausea or vomiting Musculoskeletal-denies acute joint swelling or tenderness or redness Neurological- denies acute dysarthria, dysphagia, change in vision Psychiatry- denies depression or SI or HI Skin- denies acute rash or purpura 10/11/2024-patient was seen today at bedside. Patient reported feeling a little bit anxious, mild headache, mild hand tremor. CIWA score 9. Started Librium as per protocol. Patient was counseled about the effect of alcoholism on health. 10/12/2024-patient is seen today at bedside, less than chart reviewed. Patient reported feeling anxious this morning. Patient still has tremor, mild headache, CIWA 9 this morning. No abuse seizure documented over last 24 hours. Objective vital signs Vital Sign Date Time Temp Pulse Resp B/P (MAP) Pulse Ox O2 Delivery O2 Flow Rate FiO2 10/12/24 05:00 98.9 57 18 126/80 (95) 97 98.9 10/11/24 21:40 Room Air* 0 21 Total Intake and Output 10/11/24 10/11/24 10/12/24 15:00 23:00 07:00 Intake Total 590 ml 386.247 ml 800 ml Output Total 720 ml 1300 ml Balance 590 ml -333.753 ml -500 ml medications Current Medications Medications Dose Ordered Sig/Tank Route Start Time Stop Time Status Last Admin Dose Admin Lorazepam 1 mg Q2HP PRN IV 10/11/24 03:15 10/12/24 06:11 1 MG Folic Acid 1 mg DAILY PO 10/11/24 10:00 10/11/24 10:14 1 MG Thiamine HCl 100 mg DAILY PO 10/11/24 10:00 10/11/24 10:14 100 MG Trazodone HCl 50 mg HS PO 10/11/24 22:00 10/11/24 21:39 50 MG Gabapentin 300 mg TID PO 10/11/24 06:00 10/12/24 05:15 300 MG Sodium Chloride 10 ml Q8HR IV 10/11/24 06:00 10/12/24 05:16 10 ML Ondansetron HCl 4 mg Q4HP PRN IV 10/11/24 03:15 10/11/24 17:10 4 MG Multivitamins 1 tab DAILY PO 10/11/24 10:00 10/11/24 10:14 1 TAB Acetaminophen 650 mg Q6HP PRN PO 10/11/24 03:15 10/12/24 06:23 650 MG Chlordiazepoxide HCl 50 mg Q12HR PO 10/12/24 10:00 10/12/24 22:01 Chlordiazepoxide HCl 25 mg Q12HR PO 10/13/24 10:00 10/13/24 22:01 Chlordiazepoxide HCl 25 mg QAM PO 10/14/24 07:00 10/14/24 07:01 Folic Acid 1 mg/ Magnesium Sulfate 8 meq/ Multivitamins 10 ml/Thiamine HCl 100 mg/Sodium Chloride 1,013.2 ml @ 126.247 mls/hr DAILY@1800 INJ 10/11/24 18:00 10/11/24 18:04 126.247 MLS/HR Pantoprazole Sodium 40 mg DAILY@0600 PO 10/12/24 06:00 10/12/24 05:15 40 MG Examination General examination- awake, alert oriented, bruise on the right forehead, left knee HEENT- PEERLA, no acute nasal discharge Cardiovascular- S1-S2 audible, rate and rhythm regular, no murmur Respiratory- CTAB, no wheeze or rhonchi Gastrointestinal-nontender, bowel sound+. Nondistended Musculoskeletal-no acute joint swelling or tenderness or redness Lower extremity- bruise left knee Neurological- cranial nerves intact, no acute dysarthria or dysphagia Psychiatry- denies depression or SI or HI Skin- no acute rash or purpura laboratory and microbiology Laboratory Tests 10/12/24 06:00 Test 10/12/24 06:00 Range/Units Serum Glucose 94 74-106 mg/dL Labs and/or images reviewed: Labs reviewed by me, Image(s) reviewed by me Problem List/Assessment/Plan Problem List/Assessment/Plan Assessment and plan # Alcohol withdrawal seizure # Alcohol intoxication # toxic encephalopathy/metabolic encephalopathy likely due to alcoholism -CT head negative for acute intracranial abnormality -blood alcohol level 322 -continue lorazepam PRN as prescribed -Librium as prescribed -IV banana bag as prescribed -continue oral folic acid and thiamine as prescribed Patient was counseled about the effect of alcoholism on health # lactic acidosis -continue IV fluid as prescribed # acute rhabdomyolysis -creatinine kinase 504 -continue IV fluid as prescribed #Depression # OCD # insomnia -resumed home medications trazodone, gabapentin Diet-regular diet Goals of care, Code status ; discussed with >15 minutes PUD prophylaxis: Pantoprazole DVT prophylaxis: Not indicated Plan discussed with Dr. Trujillo , nursing staff, Total time spent on patient evaluation, chart review, assessment and plan, discussion discussion >35 minutes Plan discussed with: Patient, Other (RN) My Orders My Orders Orders - RAD HOLLIS RESIDENT Procedure Category Date Status Time Chlordiazepoxide Hcl PHA 10/12/24 In Process Capsule (Librium Ca 10:00 Chlordiazepoxide Hcl PHA 10/13/24 In Process Capsule (Librium Ca 10:00 Chlordiazepoxide Hcl PHA 10/14/24 In Process Capsule (Librium Ca 07:00 Folic Acid... PHA 10/11/24 In Process 18:00 Pantoprazole Tablet PHA 10/12/24 In Process (Protonix Tablet) 06:00 Regular Diet DIET 10/11/24 Transmitted Dinner * Thread Grinder CONS 10/11/24 Transmitted Consult * Wound Consult CONS 10/11/24 Transmitted Mrsa Screen FLORA 10/11/24 In Process 23:52 Date of Service: Oct 12, 2024 Billing Provider: CASEY TRUJILLO MD Common Visit Codes: [id number] INP/OBS CARE(HIGH) RAD HOLLIS RESIDENT Oct 12, 2024 09:22 NADIRA BLANCO Oct 13, 2024 07:02 CASEY TRUJILLO MD Oct 13, 2024 10:52
[2024-10-13 01:00] VITALS: BP 117/77; PULSE 64; RESP 18; TEMP 98.1; O2SAT 98
[2024-10-13 05:00] VITALS: BP 120/69; PULSE 81; RESP 17; TEMP 98; O2SAT 98
[2024-10-13 06:35] LABS: Hematocrit 39.8 % (41.0-53.0); Hemoglobin 14.0 g/dL (13.5-17.5); Mean Corpuscular Hemoglobin 33.2 pg (28.0-32.0); Mean Corpuscular Volume 94.2 fL (80.0-100.0); Nucleated Red Blood Cells % 0.0 %
[2024-10-13 06:54] LABS: Alanine Aminotransferase 27 U/L (7-40); Alkaline Phosphatase 57 U/L (46-116); Anion Gap 8 (5-15); BUN/Creatinine Ratio 6.0 (10.0-20.0); Blood Urea Nitrogen < 5 mg/dL (9-23); Calcium 8.6 mg/dL (8.7-10.4); Carbon Dioxide 28 mmol/L (20-31); Chloride 104 mmol/L (98-107); Glucose 93 mg/dL (74-106); Potassium 3.5 mmol/L (3.5-5.1); Sodium 140 mmol/L (136-145)
[2024-10-13 06:55] LABS: Albumin 3.7 g/dL (3.2-4.8); Magnesium 1.9 mg/dL (1.6-2.6); Total Protein 6.1 g/dL (5.7-8.2)
[2024-10-13 06:56] LABS: Bilirubin, Total 0.6 mg/dL (0.2-1.0)
[2024-10-13 08:51] VITALS: BP 115/78; PULSE 69; RESP 20; TEMP 97.8; O2SAT 98
[2024-10-13] MEDS ORDERED: TRAZ-227 PO (09:28)
[2024-10-13] MEDS ORDERED: FOLI-119 PO ×2 (09:28→18:58)
[2024-10-13] MEDS ORDERED: THIA100T10 PO (09:28)
[2024-10-13] MEDS ORDERED: MULTTAB99 PO (09:28)
[2024-10-13] MEDS ORDERED: GABA-1250 PO (09:28)
[2024-10-13] MEDS ORDERED: PANT40T PO ×2 (09:28→18:58)
[2024-10-13] MEDS ORDERED: LORazepam 2MG/ML-1ML VIAL IV PRN (10:45)
[2024-10-13 11:11] VITALS: BP 115/78; PULSE 69; RESP 20; TEMP 97.8; O2SAT 98
--- NOTE | 2024-10-13 18:44 | DVHDSRES ---
Discharge Summary Date of Admission Resident Creating Document: RAD HOLLIS RESIDENT Oct 11, 2024 at 03:03 Date of Discharge: Oct 13, 2024 Admitting Diagnosis Acute alcohol withdrawal Labs/Diagnostic Data: Laboratory Results Test 10/13/24 05:54 10/12/24 06:00 10/11/24 03:38 10/11/24 01:13 White Blood Count 4.7 10^3/uL (4.4-10.8) Red Blood Count 4.23 10^6/uL (4.5-5.90) Hemoglobin 14.0 g/dL (13.5-17.5) Hematocrit 39.8 % (41.0-53.0) Mean Corpuscular Volume 94.2 fL (80.0-100.0) Mean Corpuscular Hemoglobin 33.2 pg (28.0-32.0) Mean Corpuscular Hemoglobin Concent 35.3 g/dL (32.0-36.0) Red Cell Distribution Width 12.7 % (11.8-14.3) Platelet Count 232 10^3/uL (140-450) Mean Platelet Volume 9.2 fL (6.9-10.8) Neutrophils (%) (Auto) 46.9 % (37.0-80.0) Lymphocytes (%) (Auto) 32.7 % (10.0-50.0) Monocytes (%) (Auto) 10.7 % (0.0-12.0) Eosinophils (%) (Auto) 8.1 % (0.0-7.0) Basophils (%) (Auto) 1.6 % (0.0-2.0) Neutrophils # (Auto) 2.2 10 ^3/uL (1.6-8.6) Lymphocytes # (Auto) 1.6 10 ^3/uL (0.4-5.4) Monocytes # (Auto) 0.5 10 ^3/uL (0-1.3) Eosinophils # (Auto) 0.4 10 ^3/uL (0-0.8) Basophils # (Auto) 0.1 10 ^3/uL (0-0.2) Nucleated Red Blood Cells 0.0 % Sodium Level 140 mmol/L (136-145) Potassium Level 3.5 mmol/L (3.5-5.1) Chloride Level 104 mmol/L (98-107) Carbon Dioxide Level 28 mmol/L (20-31) Anion Gap 8 (5-15) Blood Urea Nitrogen < 5 mg/dL (9-23) Creatinine 0.84 mg/dL (0.700-1.30) Glomerular Filtration Rate Calc 122 mL/min (>90) BUN/Creatinine Ratio 6.0 (10.0-20.0) Serum Glucose 93 mg/dL (74-106) Calcium Level 8.6 mg/dL (8.7-10.4) Magnesium Level 1.9 mg/dL (1.6-2.6) Total Bilirubin 0.6 mg/dL (0.2-1.0) Aspartate Amino Transferase (AST) 28 U/L (13-40) Alanine Aminotransferase (ALT) 27 U/L (7-40) Alkaline Phosphatase 57 U/L (46-116) Total Protein 6.1 g/dL (5.7-8.2) Albumin 3.7 g/dL (3.2-4.8) Hemoglobin A1c 5.0 % A1C (<5.7) Thyroid Stimulating Hormone (TSH) 2.05 uIU/mL (0.55-4.78) Lactic Acid Level 1.8 mmol/L (0.4-2.0) Troponin I High Sensitivity < 3 ng/L (</=54) Creatine Kinase 504 U/L (46-171) Plasma/Serum Blood Alcohol 322.7 mg/dL (<10) Test 10/11/24 01:00 Urine Color Colorless (Yellow) Urine Clarity Clear (Clear) Urine pH 5.5 (5.0-9.0) Urine Specific [place] 1.004 (1.001-1.035) Urine Protein Negative (Negative) Urine Ketones Negative (Negative) Urine Blood Negative /uL (Negative) Urine Nitrite Negative (Negative) Urine Bilirubin Negative (Negative) Urine Urobilinogen Normal mg/dL (Negative) Urine Leukocyte Esterase Negative /uL (Negative) Urine RBC None seen /hpf (0 - 3) Urine Microscopic WBC < 1 /HPF (0-3) Urine Squamous Epithelial Cells None seen /hpf (<5) Urine Bacteria None seen /hpf (None Seen) Urine Glucose Normal mg/dL (Normal) Urine Opiates Screen Neg (NEGATIVE) Urine Fentanyl Screen Neg (NEGATIVE) Urine Barbiturates Screen Neg (NEGATIVE) Urine Phencyclidine Screen Neg (NEGATIVE) Urine Amphetamines Screen Neg (NEGATIVE) Urine Benzodiazepines Screen Neg (NEGATIVE) Urine Cocaine Screen Neg (NEGATIVE) Urine Cannabinoids Screen Neg (NEGATIVE) Other Laboratory Tests 10/13/24 05:54 Brief Hx & Hospital Course: HPI-Patient is 29 years old male with a past medical history of depression, insomnia, OCD, history of alcohol withdrawal was brought in by EMS due to witnessed alcohol withdrawal seizure. Patient also had a witnessed seizure at the ER after he came in. Patient reported he had same episode 3 days before. As per patient he had couple of alcohol withdrawal seizure over the last couple of years. Initial lab workup revealed hyponatremia sodium 146, lactic acidosis with lactic acid 2.3, creatinine kinase 504, AST 54, blood alcohol level 322. Urinalysis negative for UTI. CTA negative for acute intracranial abnormality. Chest x-ray-Low lung volumes with bibasilar opacities likely representing atelectasis. Hospital course-Patient is 29 years old male with a past medical history of depression, insomnia, OCD, history of alcohol withdrawal was brought in by EMS due to witnessed alcohol withdrawal seizure. Patient also had a witnessed seizure at the ER after he came in. Patient reported he had same episode 3 days before. As per patient he had couple of alcohol withdrawal seizure over the last couple of years. Initial lab workup revealed hyponatremia sodium 146, lactic acidosis with lactic acid 2.3, creatinine kinase 504, AST 54, blood alcohol level 322. Urinalysis negative for UTI. CTA negative for acute intracranial abnormality. Chest x-ray-Low lung volumes with bibasilar opacities likely representing atelectasis. Patient was on CIWA protocol, was on live DM and patient was also on PRN Ativan. Patient's symptoms were improving. Patient was advised to stay 1 more day after stopping Librium to make sure there was no sign of withdrawal with the next 12-14 hours. Patient left AMA. Patient's condition was undetermined on discharge. Assessment and plan # Alcohol withdrawal seizure # Alcohol intoxication # toxic encephalopathy/metabolic encephalopathy likely due to alcoholism # lactic acidosis # acute rhabdomyolysis #Depression # OCD # insomnia Plan Continue thiamine, Continue folic acid Continue pantoprazole Resume home medications Please follow up with the primary care physician within 1 week Operations or Procedures [address] [address] Ph: [phone] DIAGNOSTIC IMAGING Diagnostic Imaging Report : [id number] Signed PATIENT: BRIAN COLEMAN ACCT: [id number] UNIT: [id number] : 1995 LOC: ER ROOM / BED: / AGE / SEX: 29 / M ADM STATUS: REG ER SERVICE [id number] ORDERING PHYSICIAN: KOBE ISAAC DO PROCEDURE(s): HWOCT - HEAD WITHOUT CONTRAST REASON: Alcohol withdrawal seizure ORDER NUMBER(s): [id number], ACCESSION NUMBER(s): [id number] EXAM: CT HEAD WITHOUT CONTRAST INDICATION: Alcohol withdrawal seizure TECHNIQUE: CT of the head without intravenous contrast. Radiation Dose : 1. Head: CT Dose: CTDI volume is 62.13 mGy. Dose-length product is 1.71 mGy*cm The dose indicators for CT are the volume Computed Tomography (CT) Dose Index (CTDIvol) and the Dose Length Product (DLP), and are measured in units of mGy and mGy-cm, respectively. These indicators are not patient dose, but values generated from the CT scanner acquisition factors. The report includes radiation exposure data for exposures received during this examination. COMPARISON: None FINDINGS: Brain: No acute hemorrhage, mass effect, or cerebral edema. CSF Spaces: Size and morphology within normal limits. Bones/Soft Tissues: No acute findings. Orbits/Sinuses/Mastoids: No acute findings. Partially imaged left maxillary sinus retention cysts. IMPRESSION: 1. No acute intracranial abnormality. Radiation optimization: All CT scans at this facility use at least one of these dose optimization techniques: automated exposure control mA and/or kV adjustment per patient size (includes targeted exams where dose is matched to clinical indication) or iterative reconstruction. ATED BY: RASHI CARRANZA MD DICTATED DATE/TIME: 10/11/24208 SIGNED BY: RASHI CARRANZA MD SIGNED DATE/TIME: 10/11/24208 CC: [place] [id number] Ph: [phone] DIAGNOSTIC IMAGING Diagnostic Imaging Report : [id number] Signed PATIENT: BRIAN COLEMAN ACCT: [id number] UNIT: [id number] : 1995 LOC: ER ROOM / BED: / AGE / SEX: 29 / M ADM STATUS: REG ER SERVICE ORDERING PHYSICIAN: KOBE ISAAC DO PROCEDURE(s): CXRP - CHEST PORTABLE REASON: Seizure ORDER NUMBER(s): [id number], ACCESSION NUMBER(s): [id number] CHEST RADIOGRAPH Indication: Seizure Technique: 1 view Comparison: None FINDINGS: Lines and Tubes: None Lungs/Pleura: No focal consolidation. Low lung volumes with vascular crowding and bibasilar airspace opacities likely representing atelectasis. No evident pleural abnormality; costophrenic angle is excluded. Cardiomediastinum: Unremarkable. Other: No acute osseous abnormality. IMPRESSION: 1. Low lung volumes with bibasilar opacities likely representing atelectasis. ATED BY: RASHI CARRANZA MD DICTATED DATE/TIME: 10/11/24132 SIGNED BY: RASHI CARRANZA MD SIGNED DATE/TIME: 10/11/24132 CC: Condition at Discharge: Undetermined Final Diagnosis/Problems List # Alcohol withdrawal seizure # Alcohol intoxication # toxic encephalopathy/metabolic encephalopathy likely due to alcoholism # lactic acidosis # acute rhabdomyolysis #Depression # OCD # insomnia Discharge Disposition: AMA Discharge Instruct/Medications Diet: Regular Activity: No Restrictions, As Tolerated Follow Up/Referral: Please follow up with the primary care physician in 1 week Medications: Thiamine Folic acid Pantoprazole Multivitamins Scheduled Fluvoxamine Maleate (Fluvoxamine Maleate), 1 TAB PO BID, (Reported) Folic Acid (Folic Acid), 1 TAB PO DAILY, (Reported) Folic Acid (Folic Acid), 1 MG PO DAILY Gabapentin (Gabapentin), 1 CAP PO TID, (Reported) Pantoprazole Sodium Sesquihydr (Pantoprazole Sodium), 40 MG PO DAILY Thiamine HCl (Thiamine Hydrochloride), 1 TAB PO DAILY, (Reported) Thiamine HCl (Thiamine Hydrochloride), 100 MG PO DAILY Thiamine Hcl (Vitamin B-1), 1 TAB PO DAILY, (Reported) Miscellaneous Medications Trazodone Hcl (Trazodone Hcl), TAB PO, (Reported) Discharge Statement: "Patient was advised to return to the ER or call 911 if any headaches, dizziness, shortness of breath, chest pain, abdominal pain, bleeding, fevers, or worsening of medical condition. Patient was counseled about treatment plan, medications, possible side effects, patientverbalized understanding. All questions were answered to the best of my ability. This discharge took greater then 30 minutes in planning, reviewing documentation, counseling the patient, and discussing with other team members." ASSESSMENT ASSESSMENT Assessment # Alcohol withdrawal seizure # Alcohol intoxication # toxic encephalopathy/metabolic encephalopathy likely due to alcoholism # lactic acidosis # acute rhabdomyolysis #Depression # OCD # insomnia Date of Service: Oct 13, 2024 Billing Provider: TYRA BERGERON MD Common Visit Codes: 99153-SWM/OBS DISCH DAY >30min RAD HOLLIS Oct 13, 2024 18:44 TYRA BERGERON MD Oct 16, 2024 22:55
[2024-10-13] MEDS ORDERED: THIA100T13 PO (18:58)
== END 2024-10-13 12:50 | disposition left against medical advice (07) | DRG 53 ==
LOC: EDBD 23:55 → ER 23:55 → OVERFLOW 10-11 03:03 → CENTRAL 10-11 03:07 → TELE-CENTR 10-11 21:12 → CENTRAL 10-12 15:17
PROVIDERS: ADMIT Student in an Organized Health Care Education/Training Program; ATTEND Emergency Medicine
DX: G40.409 Other generalized epilepsy and epileptic syndromes, not intractable, without status epilepticus (principal); G92.8 Other toxic encephalopathy; E87.20 Acidosis, unspecified; M62.82 Rhabdomyolysis; F32.A Depression, unspecified; F10.229 Alcohol dependence with intoxication, unspecified; F10.239 Alcohol dependence with withdrawal, unspecified; F42.9 Obsessive-compulsive disorder, unspecified; G47.00 Insomnia, unspecified; Z53.29 Procedure and treatment not carried out because of patient's decision for other reasons; Y90.8 Blood alcohol level of 240 mg/100 ml or more
CPT/HCPCS: 36415; 70450; 71045; 80053; 80307; 80320; 81001; 82550; 83036; 83605; 83735; 84443; 84484; 85025; 87081; 93005; 96361; 96374; 96375; 96376; G0378; J2250; J2405